=== PATIENT | female | born 1945 | race Caucasian/White ===

== ENCOUNTER 2020-01-01 14:57 | Emergency (ER) | payer OTHER ==
[~2020-01-01] VITALS: Ht 162.6 cm; Wt 102.1 kg
[~2020-01-01 14:57] MED LIST: ANASTROZOLE1 MG PO; CLARITIN10 MG PO; HYDROCHLOROTH12.5 M1 PO; LEXAPRO 10 MG T10 M1 PO; LINZESS290 MCG PO; METFORMIN HCL500 MG PO; PRILOSEC 20 MG20 MG PO; SYNTHROID88 MCG PO; TOPROL XL25 MG PO; TRAMADOL 50 MG50 MG PO; ZOCOR20 MG PO
[2020-01-01] MEDS ORDERED: TRAMADOL 50 MG50 MG PO (17:00)
[2020-01-01] MEDS ORDERED: IBUPROFEN 800800 M1 PO (17:00)
[2020-01-01 17:47] VITALS: BP 170/82
== END 2020-01-01 17:48 | disposition home or self-care (01) ==
LOC: M.ERS 14:57
DX: S62.647A Nondisplaced fracture of proximal phalanx of left little finger, initial encounter for closed fracture (principal); W22.8XXA Striking against or struck by other objects, initial encounter; Y93.89 Activity, other specified; Y92.89 Other specified places as the place of occurrence of the external cause; Y99.8 Other external cause status; Z85.3 Personal history of malignant neoplasm of breast; Z90.12 Acquired absence of left breast and nipple; Z88.6 Allergy status to analgesic agent; Z88.5 Allergy status to narcotic agent; Z79.899 Other long term (current) drug therapy

== ENCOUNTER → 2021-04-15 | Outpatient (CLI) | payer OTHER ==
[~2021-04-15] MED LIST changes: +IBUPROFEN 800800 M1 PO
== END ==
LOC: M.ULTRA 10:23
PROVIDERS: ATTEND Family Medicine
DX: K76.0 Fatty (change of) liver, not elsewhere classified (principal); R74.8 Abnormal levels of other serum enzymes; R94.5 Abnormal results of liver function studies

== ENCOUNTER → 2021-08-01 | Outpatient (CLI) | payer OTHER | LOC: M.CT 15:01 | PROVIDERS: ATTEND Family Medicine | DX: S82.142A Displaced bicondylar fracture of left tibia, initial encounter for closed fracture (principal); X58.XXXA Exposure to other specified factors, initial encounter; Y93.89 Activity, other specified; Y92.89 Other specified places as the place of occurrence of the external cause; Y99.8 Other external cause status ==